=== PATIENT | male | born 1950 | race Caucasian/White ===

== ENCOUNTER 2018-01-01 18:43 | Emergency (ER) | payer OTHER, SELFPAY ==
[2018-01-01 18:44] VITALS: BP 157/93; PULSE 68; RESP 16; TEMP 36.9; O2SAT 98; BMI 28.0
--- NOTE | 2018-01-01 20:49 | ED.VISSUMM ---
- ER Visit Summary Date of Service: 01/01/18 Chief Complaint: Laceration History of Present Illness: The patient is a [address] Montoya off. Reports that he was at work today and he stood up and hit his head on a piece of metal. Suffered a laceration. Reports he is a throbbing pain to his had this 2 out of 10 severity. No loss of consciousness. Is not on any blood thinners. His tetanus is up-to-date. Physical Examination: Vitals: Stable. Afebrile. Head: 1.5 cm laceration to the midline of the frontal portion of his scalp. No active bleeding. Neck: No vertebral tenderness. Full ROM without difficulty. Cleared by NEXUS criteria. Back: No vertebral tenderness. General: A&O x 3. NAD. Cardiovascular exam: Regular rate and rhythm, no murmur, rub or gallop. Respiratory exam: Chest nontender. No crepitus. Clear to auscultation bilaterally. No wheezes or stridor. Abdominal exam: Soft, nontender, nondistended, normal bowel sounds. No pain in RUQ or LUQ specifically. No peritoneal signs. Extremity: Atraumatic. No pain with range of motion. Emergency Department Course and Treatment: I have discussed treatment options with the patient. He is up to alleviate this heal by secondary intention. I think that is a reasonable course of action. Treatment Plan: Patient will be discharged instructions to keep the area clean, dry, and covered. Follow-up corporate care in 1 week for another exam. Disposition: To home in improved and stable condition. Impression: 1. Scalp laceration, 1.5 cm, not repaired. This note was generated with [employer] dictation software. It may contain incorrect words, spelling, and punctuation that were not noted in review of the chart prior to signing ED Disposition - Plan for ED Patient: Disposition: Home or Assisted Living Chief Complaint: Laceration Instructions: ED Laceration Small Superf No Sutr Referrals: Corporate,Care [GROUP OF PHYSICIANS] - 1 Week
[2018-01-01 21:02] VITALS: PULSE 87; RESP 16; O2SAT 98
== END 2018-01-01 21:02 | disposition home or self-care (01) ==
PROVIDERS: Emergency Provider Emergency Medicine; Family Provider Family Medicine; PCP Family Medicine
DX: S01.01XA Laceration without foreign body of scalp, initial encounter (principal); I10 Essential (primary) hypertension; Z87.442 Personal history of urinary calculi; Z79.899 Other long term (current) drug therapy; W22.8XXA Striking against or struck by other objects, initial encounter; Y93.89 Activity, other specified; Y92.89 Other specified places as the place of occurrence of the external cause; Y99.0 Civilian activity done for income or pay
CPT/HCPCS: 99282

== ENCOUNTER 2022-01-15 22:09 | Inpatient (IN) | payer MEDICARE, SELFPAY ==
[2022-01-15 22:12] VITALS: BP 205/105; PULSE 74; RESP 16; TEMP 36.8; O2SAT 97; BMI 26.9
--- NOTE | 2022-01-15 22:42 | CT_ITS ---
ACR Level 3 findings have been noted. An addendum which confirms receipt of the report will follow. STUDY: CT ABDOMEN AND PELVIS WITH CONTRAST REASON FOR EXAM: Male, 72 years old. abd pain RADIATION DOSAGE (If Supplied By Facility): CTDIvol = ( 20.33 ) mGy, DLP = ( 1846.26 ) mGycm TECHNIQUE: Transaxial images were obtained from the dome of the diaphragm to the symphysis pubis without oral contrast. IV 100mL Isovue-370 was administered. Sagittal and coronal images were reconstructed. Individualized dose optimization techniques were used for this CT. COMPARISON: CT abdomen and pelvis 05/04/2014. FINDINGS: LOWER CHEST: Unremarkable. LIVER: A few small cysts. Scattered calcifications. GALLBLADDER/BILE DUCTS: Unremarkable. PANCREAS: Unremarkable. SPLEEN: Small calcifications previous granulomatous process. ADRENAL GLANDS: Unremarkable. KIDNEYS / URETERS: Exophytic mass lower pole right kidney measures approximately 5.9 x 4.8 cm axial by 5.8 cm craniocaudal, is increased size compared to prior studies. Multiple parapelvic cysts bilaterally. There is an irregular shaped 12 mm calculus in the left renal pelvis at the ureteropelvic junction. Mild fullness of the left renal collecting system without significant hydronephrosis. BOWEL / MESENTERY: Moderately dilated small bowel. Distal small bowel is decreased caliber. Transition zone is not clearly identified but is likely in the right mid abdomen. Mild stranding in the adjacent mesentery. No bowel obstruction. APPENDIX: Identified and normal. No evidence of acute appendicitis. PERITONEUM: No free air. Small amount of free fluid in the mid to lower abdomen. VESSELS: Abdominal aorta is normal caliber. RETROPERITONEUM: Unremarkable. REPRODUCTIVE ORGANS: Enlarged prostate.. BLADDER: Unremarkable. ABDOMINAL WALL: Small left inguinal hernia contains fat and fluid, no bowel. BONES: No acute abnormality. OTHER: None. CT/Abdomen/Pelvis W IV Cont ONLY IMPRESSION: 1. Dilated small bowel pattern consistent with at least partial distal small bowel obstruction. Ileus or enteritis less likely. Mild stranding in the adjacent mesentery. 2. Small amount of ascites. 3. Large 12 mm calculus at the left UPJ, no significant hydronephrosis. 4. Right renal mass 6 cm increased size from prior studies highly suspicious for renal cell carcinoma. Electronically Signed: Lotus Ying MD at 0:29 EDT ,
[2022-01-15] MEDS: 0.9% Normal Saline 1,000 ML 999 ML IV (22:53)
[2022-01-15] MEDS: Dicyclomine 20 MG/2 ML Vial IM (23:00)
[2022-01-15] MEDS: Famotidine 200 MG/20 ML MDV 20 MG in 0.9% Normal Saline (Pres. free 8 ML 300 MG IV (23:00)
[2022-01-15 23:04] LABS: Absolute Lymphocyte Count 0.66 X10^3/uL (0.83-4.51); Absolute Neutrophil Count 2.8 X10^3/uL (2.0-7.7); Basophil# 0.01 X10^3/uL; Basophil% 0.2 % (0-1); Hematocrit 45.8 % (40-54); Hemoglobin 15.6 g/dL (13.0-16.5); Lymphocyte # 0.66 X10^3/ul (0.83-4.51); Lymphocyte % 16.3 % (19-41); Mean Corp Hgb Conc 34.1 g/dL (32-36); Mean Corpuscular Hgb 32.8 pg (27.0-32.0); Mean Corpuscular Volume 96.2 fL (80-94); Mean Platelet Vol. 10.2 fl (6.2-12.0); Monocyte# 0.55 X10^3/uL; Monocyte% 13.6 % (0-10); NRBC Flagged by Analyzer 0 % (0-5); Neutrophil # 2.82 X10^3/uL (2.7-7.7); Neutrophil % 69.7 % (47-70); POSITIVE COUNT YES; Platelet Count 169 K/mm3 (150-450); RBC Distribution Width CV 11.9 % (11.6-14.6); RBC Distribution Width SD 42.4 fl (35.1-43.9); Red Blood Count 4.76 M/mm3 (4.6-6.2); White Blood Count 4.1 K/mm3 (4.4-11.0)
[2022-01-15 23:21] LABS: Differential Indicated SCAN CRITERIA MET
[2022-01-15 23:22] LABS: Differential Comment SCANNED
[2022-01-15 23:26] LABS: AST(SGOT) 30 U/L (15-37); Alanine Aminotransfer ALT/SGPT 30 U/L (16-61); Albumin, Serum 3.4 g/dL (3.2-5.0); Alkaline Phosphatase 74 U/L (45-117); Anion Gap 3 (5-15); BUN 19 mg/dL (7-18); BUN/Creat Ratio 17.6 RATIO (10-20); Bilirubin, Direct 0.18 mg/dL (0.00-0.30); Chloride 103 mmol/L (98-107); Creatinine, Serum 1.08 mg/dL (0.70-1.30); EST Glomerular Filtration Rate 72 mL/min (>60); Est Glom Filt Rate - Afr Amer 87 mL/min (>60); Estimated Creatinine Clearance 79.06 ml/min; Globulin 3.5 g/dL (2.2-4.2); Glucose 119 mg/dL (74-106); Lipase 42 U/L (73-393); Potassium 3.8 mmol/L (3.5-5.1); Protein, Total 6.9 g/dL (6.4-8.2); Sodium Level 139 mmol/L (136-145)
[2022-01-16] VITALS (7 sets, daily range): BP systolic 140–187; BP diastolic 86–109; PULSE 67–75; RESP 16–18; TEMP 36.6–37.2; O2SAT 95–97; BMI 27.1
--- NOTE | 2022-01-16 00:57 | PCM.HP.STD ---
HPI - General General Date of Admission: 01/16/22 Date of Service: 01/16/22 Chief Complaint: Abdominal bloating, N/V/D. HPI Narrative The patient is a 72 y/o M w/ PMHx: HTN, Hx Nephrolithiasis who presents to the [facility] ED on 01/16/22 with history of onset starting Thursday specifically bloating with distention with loose stools as well as nausea and emesis however since then the emesis is abated and the diarrhea has resolved but he continues to have distention and discomfort rated 4-5 out of 10 in severity and described as an aching with a discomfort primarily along the bilateral abdominal sides with a stretch was worse with distention with decreased oral intake tolerance prompting ED evaluation. Following NG tube placement in the ED patient notes improvement of his discomfort and states he feels nearly to baseline. Work-up in the ED included T98.2, heart rate 74, BP 205/105, respiratory rate 16, 97% room air, CBC with WC 4.1, hemoglobin 15.6, platelet 169 with lymphopenia, CMP with convex at 33, BUN/creat 19/1.01, glucose 119, unremarkable Paddock profile, lipase 42, CT A/P w/ dilated small bowel pattern consistent with at least partial distal small bowel obstruction, ileus or enteritis less likely, mild stranding in the adjacent mesentery, small amount of ascites, large 12 mm calculus at the left UPJ, no significant hydronephrosis, right renal mass 6 cm increased size from prior studies highly suspicious for renal cell carcinoma. ED physician discussed case with general surgeon who agreed with NG tube placement. In the ED patient administered IV famotidine as well as normal saline bolus. In the ED patient administered famotidine IV, Bentyl IM as well as normal saline bolus. [facility] Medical History (Updated 01/16/22 @ 02:24 by Dong Vargas) History of nephrolithiasis HTN (hypertension) Hypothyroidism Home Medications aspirin 81 mg chewable tablet 81 mg PO QODAY [facility] 01/16/22 [History Last Taken 01/15/22] levothyroxine 75 mcg tablet 75 mcg PO DAILY thyroid 01/16/22 [History Last Taken 01/15/22] lisinopril 20 mg tablet 20 mg PO DAILY htn 01/16/22 [History Last Taken 01/15/22] omega-3 fatty acids 500 mg PO DAILY supplement 01/16/22 [History Last Taken 01/15/22] pediatric multivitamin no.76 (Flintstones Complete chewable tablet) 2 tab PO DAILY supplement 01/16/22 [History Last Taken 01/15/22] Allergy/AdvReac Type Severity Reaction Status Date / Time No Known Allergies Allergy Verified 01/15/22 22:13 Surgical History (Updated 01/16/22 @ 02:24 by Dong Vargas) H/O hand surgery H/O hernia repair History of lithotripsy Social History (Updated 01/16/22 @ 00:[address] Cherri Sood MD) household members: spouse Smoking Status: Never smoker alcohol intake: never substance use type: does not use ROS ROS Narrative Admission Review of Systems: CONSTITUTIONAL: No weight loss, fever, chills, + weakness or fatigue. HEENT: Eyes: No visual loss, blurred vision, double vision or yellow sclerae. Ears, Nose, Throat: No hearing loss, sneezing, congestion, runny nose or sore throat. SKIN: No rash or itching, lesions, wounds. CARDIOVASCULAR: No chest pain, chest pressure or chest discomfort, palpitations, edema, orthopnea, syncopal events. RESPIRATORY: No shortness of breath, cough or sputum, wheezing, hemoptysis. GASTROINTESTINAL: + anorexia, nausea w/ vomiting in the ED, abdominal pain/bloating, No diarrhea, melena, BRBPR. GENITOURINARY: No dysuria, frequency, urgency or retention. NEUROLOGICAL: No headache, dizziness, syncope, paralysis, ataxia, numbness or tingling in the extremities, focal weakness, change in bowel or bladder control, seizure. MUSCULOSKELETAL: No muscle, back pain, joint pain or stiffness. HEMATOLOGIC: No anemia, bleeding or bruising. LYMPHATICS: No enlarged nodes. No history of splenectomy. PSYCHIATRIC: No history of depression or anxiety. ENDOCRINOLOGIC: No reports of sweating, cold or heat intolerance. No polyuria or polydipsia. ALLERGIES: No history of asthma, hives, eczema or rhinitis. Vital Signs Vital Signs Vital Signs: 01/15/22 22:12 Temperature 98.2 F Temperature Source Temporal Pulse Rate 74 Respiratory Rate 16 Blood Pressure 205/105 H Blood Pressure Mean 138 Pulse Ox 97 Oxygen Delivery Method Room Air Weight Weight: 227 lb Body Mass Index (BMI) 26.9 Physical Exam Narrative Physical Examination: General: Awake, alert, oriented x 3 and cooperative, seated upright in the ED bed, notes pain improved s/p recent NGT placement. Skin: Normal color, normal turgor, no icterus, no cyanosis. HEENT: AT/NC, EOMI, PERRLA, dry MM, NGT in place, no carotid bruits or JVD noted. Lungs: CTA bilaterally, moderate effort, mild decrease BL bases, no rales, ronchi or wheezing. Heart: Regular rate and rhythm; no gallop, rub audible. Abdomen: Soft, NTTP, notes pain improved s/p recent NGT placement, still mildly distended, absent bowel sounds, no obvious HSM. Extremities: No cyanosis, clubbing, or edema. Neurological: Patient awake, alert, oriented as noted, cognitive function intact; pupils equally reactive to light and accommodation, cranial nerves II-XII grossly normal, moving all 4 extremities, no focal deficits, strength mildly globally decreased secondary to acute presentation Psychiatric: Affect appears fatigued, notes pain improved, no obvious evidence of depression or anxiety. Results Lab / Micro Data Result Diagrams: 01/15/22 05:22 01/15/22 05:22 Labs: Laboratory Results - last 24 hr 01/15/22 05:22: Sodium 139, Potassium 3.8, Chloride 103, Carbon Dioxide 33.0 H, Anion Gap 3 L, BUN 19 H, Creatinine 1.08, Estim Creat Clear Calc 79.06, Est GFR (MDRD) Af Amer 87, Est GFR (MDRD) Non-Af 72, BUN/Creatinine Ratio 17.6, Glucose 119 H, Calcium 9.0, Total Bilirubin 0.60, Direct Bilirubin 0.18, AST 30, ALT 30, Alkaline Phosphatase 74, Total Protein 6.9, Albumin 3.4, Globulin 3.5, Lipase 42 L 01/15/22 05:22: WBC 4.1 L, RBC 4.76, Hgb 15.6, Hct 45.8, MCV 96.2 H, MCH 32.8 H, MCHC 34.1, RDW Std Deviation 42.4, RDW Coeff of Stone 11.9, Plt Count 169, MPV 10.2, Immature Gran % (Auto) 0.200, Neut % (Auto) 69.7, Lymph % (Auto) 16.3 L, Mcclain % (Auto) 13.6 H, Eos % (Auto) 0.0, Baso % (Auto) 0.2, Absolute Neuts (auto) 2.8, Absolute Lymphs (auto) 0.66 L, Nucleated RBC % 0, Differential Comment SCANNED Radiology Impression Abdomen/Pelvis CT 01/15/22 22:42 IMPRESSION: 1. Dilated small bowel pattern consistent with at least partial distal small bowel obstruction. Ileus or enteritis less likely. Mild stranding in the adjacent mesentery. 2. Small amount of ascites. 3. Large 12 mm calculus at the left UPJ, no significant hydronephrosis. 4. Right renal mass 6 cm increased size from prior studies highly suspicious for renal cell carcinoma. Electronically Signed: Lotus Ying MD at 0:29 EDT , ADDENDUM: 01/16/22 0039 IMPRESSION: 1. Dilated small bowel pattern consistent with at least partial distal small bowel obstruction. Ileus or enteritis less likely. Mild stranding in the adjacent mesentery. 2. Small amount of ascites. 3. Large 12 mm calculus at the left UPJ, no significant hydronephrosis. 4. Right renal mass 6 cm increased size from prior studies highly suspicious for renal cell carcinoma. N.B. : Dr Stefano Talavera MD, confirmed on 01/16/2022 00:32:39 (ET) that the healthcare facility has received the radiology report. Electronically Signed: Lotus Ying MD at 0:29 EDT , Assessment & Plan Assessment/Plan (1) Small bowel obstruction: PLAN: Plan The patient is a 72 y/o M w/ PMHx: HTN, Hx Nephrolithiasis who presents to the [facility] ED on 01/16/22 with history of onset starting Thursday specifically bloating with distention with loose stools as well as nausea and emesis however since then the emesis is abated and the diarrhea has resolved but he continues to have distention and discomfort rated 4-5 out of 10 in severity and described as an aching with a discomfort primarily along the bilateral abdominal sides with a stretch was worse with distention with decreased oral intake tolerance prompting ED evaluation. #1. Abdominal pain, nausea, emesis w/ suspected partial SBO, possible Enteritis: Will admit to [facility], maintain on IVFs, continue NGT to suction, strict I&Os, IV pain/anti-emetics PRN, serial KUB as needed to montior bowel function, Famotidine IV, maintain NPO on bowel rest. General surgery consulted and pending. #2. Incidental right renal mass: Patient with a right renal mass 6 mm increased in size from prior studies although patient denies any history of knowledge of this, suspicious for renal cell carcinoma, urology consulted, pending. #3. Incidental left UPJ calculus without hydronephrosis: Patient with a large 12 mm calculus at the left UPJ with no significant hydronephrosis, urology is noted consulted. #4. Hypertension: Given presentation maintain NPO status, PRN hydralazine. #5. DVT prophylaxis: SCDs, Lovenox. Charges/Coding Visit Charges Inpatient E&M: 45999 Init Hosp L3
--- NOTE | 2022-01-16 01:00 | RAD_ITS ---
STUDY: X-RAY - ABDOMEN/PELVIS REASON FOR EXAM: Male, 72 years old. NG Insertion TECHNIQUE: Portable, upright, AP abdomen radiograph COMPARISON: 11/21/2014 RAD/Abdomen Single View (Portable) IMPRESSION: NG tube terminates over the gastric fundus with sidehole below the diaphragm. Multiple prominent gas-filled small bowel loops. Electronically Signed: Finesse Nelson MD at 2:14 EDT ,
--- NOTE | 2022-01-16 01:01 | EX.ED.DYSGE1 ---
HPI History of Present Illness Chief Complaint: Abd Pain Narrative Narrative: Patient is a 72-year-old male with past medical history of hypertension as well as past surgical history of a left inguinal hernia repair about 20 years ago. He states beginning Thursday he developed abdominal bloating with bouts of nausea vomiting and loose stools. He states that the stool has now resolved and his vomiting has stopped as well but he continues to feel nauseous and distended. He saw his family doctor and was placed on Zofran but has had minimal symptom improvement and secondary to this presents for evaluation. [facility] Medical History (Updated 01/16/22 @ 02:[address] Stefano Talavera DO) History of nephrolithiasis HTN (hypertension) Home Medications [facility] [History Last Taken 01/15/22] levothyroxine 75 mcg tablet 75 mcg PO DAILY thyroid 01/16/22 [History Last Taken 01/15/22] lisinopril 20 mg tablet 20 mg PO DAILY htn 01/16/22 [History Last Taken 01/15/22] omega-3 fatty acids 500 mg PO DAILY supplement 01/16/22 [History Last Taken 01/15/22] pediatric multivitamin no.76 (Flintstones Complete chewable tablet) 2 tab PO DAILY supplement 01/16/22 [History Last Taken 01/15/22] Allergy/AdvReac Type Severity Reaction Status Date / Time No Known Allergies Allergy Verified 01/15/22 22:13 Surgical History (Updated 01/16/22 @ 00:[address] Cherri Sood MD) H/O hand surgery History of appendectomy History of lithotripsy Social History (Updated 01/16/22 @ 00:[address] Cherri Sood MD) household members: spouse Smoking Status: Never smoker alcohol intake: never substance use type: does not use ROS ROS ED Constitutional Constitutional ED: Denies chills or fever(s) ENT ENT ED: Denies sore throat Cardiovascular Cardiovascular: Denies chest pain Respiratory/Chest Respiratory/Chest: Denies cough or dyspnea Gastrointestinal Gastrointestinal: Reports abdominal pain, diarrhea, nausea and vomiting Genitourinary Genitourinary ED: Denies dysuria Musculoskeletal Musculoskeletal: Denies back pain or myalgias Integumentary Denies rash Neurologic Neurologic: Denies headache(s) Hematologic/Lymphatic Hematologic/Lymphatic: Denies easy bleeding or easy bruising EXAM Physical Exam Const Vital Signs: 01/15/22 22:12 Temperature 98.2 F Temperature Source Temporal Pulse Rate 74 Respiratory Rate 16 Blood Pressure 205/105 H Blood Pressure Mean 138 Pulse Ox 97 Oxygen Delivery Method Room Air Positive well nourished and well developed General Appearance ED: well developed HEENT Reports moist mucous membranes Eyes PERRL and EOMs intact bilaterally Neck supple Resp normal respiratory effort and clear to auscultation bilaterally Cardio regular rate and regular rhythm Rate: other Other Details: Radial pulses are plus 2 out of 4 bilaterally are equal and symmetric GI GI Narrative: Abdomen is distended with hypoactive bowel sounds and mild diffuse pain with palpation. There is increased tympany along the right mid abdomen. No voluntary guarding or rigidity. No pulsatile mass or fluid wave Auscultation: hypoactive bowel sounds Back/Spine no CVA tenderness Extremity normal to inspection Neuro oriented x3 and CN's II-XII intact bilaterally Sensorium / Orientation: alert Psych mental status grossly normal Skin no rashes or lesions noted MDM MDM MDM Narrative Medical decision making narrative: Patient presented to ER hypertensive but does have a history of this and therefore it was not overtly concerning especially with his symptoms and pain. His clinical picture is consistent with enteritis but the distention is concerning for obstruction. Secondary to his basic blood work and a CT were ordered. Labs revealed no clinically significant findings but CT scan did show changes consistent with partial small bowel obstruction and renal cell carcinoma. The case was discussed with general surgery who recommends that patient be admitted to medicine based on his history of hypertension age and now renal cell carcinoma. However they do recommend patient have NG tube placed because of his distention. Therefore an NG tube was ordered and will be placed in the ER and patient be admitted to the hospital for continued symptom control and further evaluation. Lab Data Attestation: I reviewed the patient's lab results. Labs: Laboratory Results - last 24 hr 01/15/22 01/15/22 05:22 05:22 WBC 4.1 L RBC 4.76 Hgb 15.6 Hct 45.8 MCV 96.2 H MCH 32.8 H MCHC 34.1 RDW Std Deviation 42.4 RDW Coeff of Stone 11.9 Plt Count 169 MPV 10.2 Immature Gran % (Auto) 0.200 Neut % (Auto) 69.7 Lymph % (Auto) 16.3 L [place] % (Auto) 13.6 H Eos % (Auto) 0.0 Baso % (Auto) 0.2 Absolute Neuts (auto) 2.8 Absolute Lymphs (auto) 0.66 L Nucleated RBC % 0 Differential Comment SCANNED Sodium 139 Potassium 3.8 Chloride 103 Carbon Dioxide 33.0 H Anion Gap 3 L BUN 19 H Creatinine 1.08 Estim Creat Clear Calc 79.06 Est GFR (MDRD) Af Amer 87 Est GFR (MDRD) Non-Af 72 BUN/Creatinine Ratio 17.6 Glucose 119 H Calcium 9.0 Total Bilirubin 0.60 Direct Bilirubin 0.18 AST 30 ALT 30 Alkaline Phosphatase 74 Total Protein 6.9 Albumin 3.4 Globulin 3.5 Lipase 42 L Radiography Diagnostic Testing: Clinical Impression(s) from Imaging Studies Abdomen/Pelvis CT 01/15/22 22:42 IMPRESSION: 1. Dilated small bowel pattern consistent with at least partial distal small bowel obstruction. Ileus or enteritis less likely. Mild stranding in the adjacent mesentery. 2. Small amount of ascites. 3. Large 12 mm calculus at the left UPJ, no significant hydronephrosis. 4. Right renal mass 6 cm increased size from prior studies highly suspicious for renal cell carcinoma. Electronically Signed: Lotus Ying MD at 0:29 EDT , ADDENDUM: 01/16/22 0039 IMPRESSION: 1. Dilated small bowel pattern consistent with at least partial distal small bowel obstruction. Ileus or enteritis less likely. Mild stranding in the adjacent mesentery. 2. Small amount of ascites. 3. Large 12 mm calculus at the left UPJ, no significant hydronephrosis. 4. Right renal mass 6 cm increased size from prior studies highly suspicious for renal cell carcinoma. N.B. : Dr Stefano Talavera MD, confirmed on 01/16/2022 00:32:39 (ET) that the healthcare facility has received the radiology report. Electronically Signed: Lotus Ying MD at 0:29 EDT , KUB X-Ray 01/16/22 01:00 IMPRESSION: NG tube terminates over the gastric fundus with sidehole below the diaphragm. Multiple prominent gas-filled small bowel loops. Electronically Signed: Finesse Nelson MD at 2:14 EDT , KUB as interpreted by the emergency medicine physician reveals that the NG tube is in the proper place and terminating in the gastric fundus Discharge Plan Dx/Rx/DC Orders Clinical Impression: Small bowel obstruction, Renal cell carcinoma, Hypertension Disposition Disposition: Acute Care Hospital [facility] Discharge Date/Time: 01/16/22 02:01
[2022-01-16] MEDS: Ketorolac 15 MG/ML Vial IV (01:10)
[2022-01-16] MEDS: Oxymetazoline 0.05% 1 SPRAY SPRAY.BTL 2 SPRAY NASAL (01:12)
[2022-01-16] MEDS: 0.9% Normal Saline 1,000 ML 125 ML IV ×3 (02:46→18:09)
[2022-01-16] MEDS: 0.9% Saline Lock 10 ML Syringe IV ×3 (02:47→21:29)
[2022-01-16] MEDS: hydrALAZINE 20 MG/ML Vial 10 MG IV (05:38)
--- NOTE | 2022-01-16 05:55 | RAD_ITS ---
STUDY: X-RAY - ABDOMEN/PELVIS REASON FOR EXAM: Male, 72 years old. pSBO TECHNIQUE: Single AP view of the abdomen / pelvis. COMPARISON: Comparison is made with prior study done earlier in the day. FINDINGS: Nasogastric tube is seen with the tip in the body of the stomach. There are dilated loops of the small intestine with a non-distended colon consistent with a partial small bowel obstruction. Gas is seen in the colon. The visualized liver, spleen and kidneys are grossly normal in size and morphology. Normal soft tissue structures. Normal visualized osseous structures. RAD/Abdomen Single View (Portable) IMPRESSION: Small bowel dilatation suggestive of a partial small bowel obstruction with the gas seen in the colon. Electronically Signed: Juventino Parisi MD at 9:57 EDT ,
[2022-01-16 06:36] LABS: Absolute Neutrophil Count 2.1 X10^3/uL (2.0-7.7); Basophil# 0.01 X10^3/uL; Basophil% 0.3 % (0-1); Hematocrit 42.3 % (40-54); Hemoglobin 14.4 g/dL (13.0-16.5); Lymphocyte % 15.8 % (19-41); Mean Corpuscular Hgb 32.7 pg (27.0-32.0); Mean Corpuscular Volume 96.1 fL (80-94); Monocyte# 0.53 X10^3/uL; Monocyte% 16.8 % (0-10); NRBC Flagged by Analyzer 0 % (0-5); Neutrophil # 2.12 X10^3/uL (2.7-7.7); Neutrophil % 67.1 % (47-70); POSITIVE DIFFERENTIAL YES; Platelet Count 174 K/mm3 (150-450); RBC Distribution Width SD 42.3 fl (35.1-43.9); White Blood Count 3.2 K/mm3 (4.4-11.0)
[2022-01-16 06:38] LABS: Differential Indicated SCAN CRITERIA MET
[2022-01-16 06:51] LABS: Atypical Lymphocyte 1+ %; Macrocytosis 1+
--- NOTE | 2022-01-16 07:19 | CON.PCM.SX_ITS ---
Assessment & Plan Assessment/Plan (1) Small bowel obstruction: PLAN: The patient has an enlarging right kidney mass as well as a possible partial small bowel obstruction. Patient reports that he is having bowel movements and passing flatus and his abdominal pain is improved. He is slightly distended but nontender. His NG does not have much in the canister but he reports that there was a lot that came out when he had it placed. I would recommend continuing NG suction with IV fluids and monitoring. Depending on NG output it may be able to be removed tomorrow if he starts resolving his bowel obstruction. Satnam Chandra MD Pager: [facility] [address] [place] [address], [address] [place] [id number] Office: HPI Consult Data Date of Consult: 01/16/22 HPI Narrative HPI Narrative: MARIE SANABRIA, is a 72 M who presents with abdominal pain and nausea and vomiting. Patient says this started 4 days ago. He says that on Thursday he began to have abdominal pain with vomiting. This continued through Thursday. He says on Thursday he stopped vomiting but he still had persistent abdominal pain. He does say yesterday he had normal loose bowel movement and he was passing gas overnight. This morning he reports his abdominal pain is improved. [facility] Medical History (Updated 01/16/22 @ 02:24 by Dong Vargas) History of nephrolithiasis HTN (hypertension) Hypothyroidism Home Medications aspirin 81 mg chewable tablet 81 mg PO [facility] 01/16/22 [History Last Taken 01/15/22] levothyroxine 75 mcg tablet 75 mcg PO DAILY thyroid 01/16/22 [History Last Taken 01/15/22] lisinopril 20 mg tablet 20 mg PO DAILY htn 01/16/22 [History Last Taken 01/15/22] omega-3 fatty acids 500 mg PO DAILY supplement 01/16/22 [History Last Taken 01/15/22] pediatric multivitamin no.76 (Flintstones Complete chewable tablet) 2 tab PO DAILY supplement 01/16/22 [History Last Taken 01/15/22] Allergy/AdvReac Type Severity Reaction Status Date / Time No Known Allergies Allergy Verified 01/15/22 22:13 Surgical History (Updated 01/16/22 @ 02:24 by Dong Vargas) H/O hand surgery H/O hernia repair History of lithotripsy Social History (Updated 01/16/22 @ 00:[address] Cherri Sood MD) household members: spouse Smoking Status: Never smoker alcohol intake: never substance use type: does not use ROS Constitutional Constitutional: Reports anorexia; Denies chills, fatigue or fever(s) Eyes Eyes: Denies blurry vision ENT HEENT: Denies abnormal hearing Cardiovascular Cardiovascular: Denies chest pain Respiratory/Chest Respiratory/Chest: Denies cough or dyspnea Gastrointestinal Gastrointestinal: Reports abdominal pain, diarrhea, nausea and vomiting; Denies coffee ground emesis or constipation Genitourinary Genitourinary: Denies change in urinary stream Musculoskeletal Musculoskeletal: Denies abnormal gait Integumentary Integumentary: Denies jaundice Neurologic Neurologic: Denies abnormal gait Psychiatric Psychiatric: Denies depression Endocrine Endocrinology: Denies flushing Hematologic/Lymphatic Hematologic/Lymphatic: Denies easy bleeding Physical Exam Const alert and oriented x3 HEENT normocephalic Eyes PERRL Resp normal respiratory effort Cardio Rate: regular rate Rhythm: regular rhythm GI soft to palpation and non-tender Inspection: abdominal distention Extremity normal to inspection Skin no rashes or lesions noted Neuro CN's II-XII intact bilaterally Psych mental status grossly normal Lab / Micro Data Result Diagrams: 01/16/22 06:15 01/15/22 05:22 Labs: Laboratory Results - last 24 hr 01/15/22 05:22: Sodium 139, Potassium 3.8, Chloride 103, Carbon Dioxide 33.0 H, Anion Gap 3 L, BUN 19 H, Creatinine 1.08, Estim Creat Clear Calc 79.06, Est GFR (MDRD) Af Amer 87, Est GFR (MDRD) Non-Af 72, BUN/Creatinine Ratio 17.6, Glucose 119 H, Calcium 9.0, Total Bilirubin 0.60, Direct Bilirubin 0.18, AST 30, ALT 30, Alkaline Phosphatase 74, Total Protein 6.9, Albumin 3.4, Globulin 3.5, Lipase 42 L 01/15/22 05:22: WBC 4.1 L, RBC 4.76, Hgb 15.6, Hct 45.8, MCV 96.2 H, MCH 32.8 H, MCHC 34.1, RDW Std Deviation 42.4, RDW Coeff of Stone 11.9, Plt Count 169, MPV 10.2, Immature Gran % (Auto) 0.200, Neut % (Auto) 69.7, Lymph % (Auto) 16.3 L, [place] % (Auto) 13.6 H, Eos % (Auto) 0.0, Baso % (Auto) 0.2, Absolute Neuts (auto) 2.8, Absolute Lymphs (auto) 0.66 L, Nucleated RBC % 0, Differential Comment SCANNED 01/16/22 06:15: WBC 3.2 L, RBC 4.40 L, Hgb 14.4, Hct 42.3, MCV 96.1 H, MCH 32.7 H, MCHC 34.0, RDW Std Deviation 42.3, RDW Coeff of Stone 12.0, Plt Count 174, MPV 10.0, Immature Gran % (Auto) 0.000, Neut % (Auto) 67.1, Lymph % (Auto) 15.8 L, [place] % (Auto) 16.8 H, Eos % (Auto) 0.0, Baso % (Auto) 0.3, Absolute Neuts (auto) 2.1, Absolute Lymphs (auto) 0.50 L, Nucleated RBC % 0, Diff Path Review May foll, Atypical Lymphocytes 1+, Macrocytosis 1+ Radiology Impression Abdomen/Pelvis CT 01/15/22 22:42 IMPRESSION: 1. Dilated small bowel pattern consistent with at least partial distal small bowel obstruction. Ileus or enteritis less likely. Mild stranding in the adjacent mesentery. 2. Small amount of ascites. 3. Large 12 mm calculus at the left UPJ, no significant hydronephrosis. 4. Right renal mass 6 cm increased size from prior studies highly suspicious for renal cell carcinoma. Electronically Signed: Lotus Ying MD at 0:29 EDT , ADDENDUM: 01/16/22 0039 IMPRESSION: 1. Dilated small bowel pattern consistent with at least partial distal small bowel obstruction. Ileus or enteritis less likely. Mild stranding in the adjacent mesentery. 2. Small amount of ascites. 3. Large 12 mm calculus at the left UPJ, no significant hydronephrosis. 4. Right renal mass 6 cm increased size from prior studies highly suspicious for renal cell carcinoma. N.B. : Dr Stefano Talavera MD, confirmed on 01/16/2022 00:32:39 (ET) that the healthcare facility has received the radiology report. Electronically Signed: Lotus Ying MD at 0:29 EDT , KUB X-Ray 01/16/22 01:00 IMPRESSION: NG tube terminates over the gastric fundus with sidehole below the diaphragm. Multiple prominent gas-filled small bowel loops. Electronically Signed: Finesse Nelson MD at 2:14 EDT ,
[2022-01-16 07:27] LABS: ALB/GLOB Ratio 0.9 RATIO (0.9-2.4); AST(SGOT) 28 U/L (15-37); Alanine Aminotransfer ALT/SGPT 28 U/L (16-61); Albumin, Serum 2.9 g/dL (3.2-5.0); Alkaline Phosphatase 65 U/L (45-117); Anion Gap 5 (5-15); BUN 20 mg/dL (7-18); BUN/Creat Ratio 20.3 RATIO (10-20); Calcium,Total 8.2 mg/dL (8.5-10.1); Chloride 105 mmol/L (98-107); Creatinine, Serum 0.98 mg/dL (0.70-1.30); EST Glomerular Filtration Rate 80 mL/min (>60); Est Glom Filt Rate - Afr Amer 97 mL/min (>60); Estimated Creatinine Clearance 87.13 ml/min; Globulin 3.2 g/dL (2.2-4.2); Glucose 106 mg/dL (74-106); Potassium 3.9 mmol/L (3.5-5.1); Protein, Total 6.1 g/dL (6.4-8.2); Sodium Level 138 mmol/L (136-145)
--- NOTE | 2022-01-16 07:52 | PCM.CONS.U ---
Assessment & Plan Assessment/Plan (1) Renal cell carcinoma: PLAN: Right side has a mass concerning for renal cell carcinoma we will have to deal with this separately also will review past images to see if this is been there before could be slow-growing. (2) Left renal stone: PLAN: He has a stone in the left renal pelvis causing obstruction at the UPJ could be contributing factor his nausea and vomiting and ileus we will set him up for stent placement and shockwave lithotripsy tomorrow n.p.o. at midnight (3) Kidney stone on left side: HPI Consult Data Date of Consult: 01/16/22 HPI Narrative Reason for Consultation: left kidney stones HPI Narrative: MARIE SANABRIA, is a 72 M who presents nausea vomiting distended abdomen he has an NG tube seen by general surgery he does have a stone in the left kidney surprisingly does have much pain in that side but it is not obstructing stone so organ to set him up for left ESWL and stent placement n.p.o. at midnight on make sure he is off all blood thinners. [facility] Medical History History of nephrolithiasis HTN (hypertension) Hypothyroidism Home Medications aspirin 81 mg chewable tablet 81 [facility] 01/16/22 [History Last Taken 01/15/22] levothyroxine 75 mcg tablet 75 mcg PO DAILY thyroid 01/16/22 [History Last Taken 01/15/22] lisinopril 20 mg tablet 20 mg PO DAILY htn 01/16/22 [History Last Taken 01/15/22] omega-3 fatty acids 500 mg PO DAILY supplement 01/16/22 [History Last Taken 01/15/22] pediatric multivitamin no.76 (Flintstones Complete chewable tablet) 2 tab PO DAILY supplement 01/16/22 [History Last Taken 01/15/22] Allergy/AdvReac Type Severity Reaction Status Date / Time No Known Allergies Allergy Verified 01/15/22 22:13 Surgical History H/O hand surgery H/O hernia repair History of lithotripsy Social History household members: spouse Smoking Status: Never smoker alcohol intake: never substance use type: does not use ROS Constitutional Constitutional: Denies chills, fever(s) or malaise Eyes Eyes: Denies blurry vision or change in vision ENT HEENT: Reports none Cardiovascular Cardiovascular: Denies chest pain or palpitations Respiratory/Chest Respiratory/Chest: Denies cough or shortness of breath with exertion Gastrointestinal Gastrointestinal: Denies abdominal pain, constipation or diarrhea Musculoskeletal Musculoskeletal: Denies back pain, joint stiffness or joint swelling Integumentary Integumentary: Denies dry skin, jaundice, lesions or rash Neurologic Neurologic: Denies confusion, syncope or weakness Psychiatric Psychiatric: Reports none; Denies anxiety or depression Endocrine Endocrinology: Denies excessive sweating, fatigue or flushing Hematologic/Lymphatic Hematologic/Lymphatic: Denies anemia, easy bleeding or easy bruising Physical Exam Const alert and oriented x3 General Appearance: cooperative HEENT normocephalic and head/scalp atraumatic Eyes PERRL and EOMs intact bilaterally Neck supple, no JVD and no carotid bruits Resp normal respiratory effort, normal air movement and clear to auscultation bilaterally Cardio regular rate and no murmurs GI normal to inspection, nondistended, normoactive bowel sounds and soft to palpation Extremity normal capillary refill General Extremity: no tenderness to palpation of joints or extremities; Negative for edema Skin no rashes or lesions noted and no wounds General Skin Exam: no breakdown Neuro CN's II-XII intact bilaterally Psych affect normal Appearance: appropriate Medical Records Data Attestation: I reviewed the patient's medical records Lab / Micro Data Attestation: I reviewed the patient's lab results. Result Diagrams: 01/16/22 06:15 01/16/22 06:15 Labs: Laboratory Results - last 24 hr 01/15/22 05:22: Sodium 139, Potassium 3.8, Chloride 103, Carbon Dioxide 33.0 H, Anion Gap 3 L, BUN 19 H, Creatinine 1.08, Estim Creat Clear Calc 79.06, Est GFR (MDRD) Af Amer 87, Est GFR (MDRD) Non-Af 72, BUN/Creatinine Ratio 17.6, Glucose 119 H, Calcium 9.0, Total Bilirubin 0.60, Direct Bilirubin 0.18, AST 30, ALT 30, Alkaline Phosphatase 74, Total Protein 6.9, Albumin 3.4, Globulin 3.5, Lipase 42 L 01/15/22 05:22: WBC 4.1 L, RBC 4.76, Hgb 15.6, Hct 45.8, MCV 96.2 H, MCH 32.8 H, MCHC 34.1, RDW Std Deviation 42.4, RDW Coeff of Stone 11.9, Plt Count 169, MPV 10.2, Immature Gran % (Auto) 0.200, Neut % (Auto) 69.7, Lymph % (Auto) 16.3 L, [place] % (Auto) 13.6 H, Eos % (Auto) 0.0, Baso % (Auto) 0.2, Absolute Neuts (auto) 2.8, Absolute Lymphs (auto) 0.66 L, Nucleated RBC % 0, Differential Comment SCANNED 01/16/22 06:15: WBC 3.2 L, RBC 4.40 L, Hgb 14.4, Hct 42.3, MCV 96.1 H, MCH 32.7 H, MCHC 34.0, RDW Std Deviation 42.3, RDW Coeff of Stone 12.0, Plt Count 174, MPV 10.0, Immature Gran % (Auto) 0.000, Neut % (Auto) 67.1, Lymph % (Auto) 15.8 L, [place] % (Auto) 16.8 H, Eos % (Auto) 0.0, Baso % (Auto) 0.3, Absolute Neuts (auto) 2.1, Absolute Lymphs (auto) 0.50 L, Nucleated RBC % 0, Diff Path Review May , Atypical Lymphocytes 1+, Macrocytosis 1+ 01/16/22 06:15: Sodium 138, Potassium 3.9, Chloride 105, Carbon Dioxide 28.0, Anion Gap 5, BUN 20 H, Creatinine 0.98, Estim Creat Clear Calc 87.13, Est GFR (MDRD) Af Amer 97, Est GFR (MDRD) Non-Af 80, BUN/Creatinine Ratio 20.3 H, Glucose 106, Calcium 8.2 L, Total Bilirubin 0.60, AST 28, ALT 28, Alkaline Phosphatase 65, Total Protein 6.1 L, Albumin 2.9 L, Globulin 3.2, Albumin/Globulin Ratio 0.9 ABG Data Attestation: I personally reviewed and interpreted this ABG as follows: Radiology Impression Abdomen/Pelvis CT 01/15/22 22:42 IMPRESSION: 1. Dilated small bowel pattern consistent with at least partial distal small bowel obstruction. Ileus or enteritis less likely. Mild stranding in the adjacent mesentery. 2. Small amount of ascites. 3. Large 12 mm calculus at the left UPJ, no significant hydronephrosis. 4. Right renal mass 6 cm increased size from prior studies highly suspicious for renal cell carcinoma. Electronically Signed: Lotus Ying MD at 0:29 EDT , ADDENDUM: 01/16/22 0039 IMPRESSION: 1. Dilated small bowel pattern consistent with at least partial distal small bowel obstruction. Ileus or enteritis less likely. Mild stranding in the adjacent mesentery. 2. Small amount of ascites. 3. Large 12 mm calculus at the left UPJ, no significant hydronephrosis. 4. Right renal mass 6 cm increased size from prior studies highly suspicious for renal cell carcinoma. N.B. : Dr Stefano Talavera MD, confirmed on 01/16/2022 00:32:39 (ET) that the healthcare facility has received the radiology report. Electronically Signed: Lotus Ynig MD at 0:29 EDT , KUB X-Ray 01/16/22 01:00 IMPRESSION: NG tube terminates over the gastric fundus with sidehole below the diaphragm. Multiple prominent gas-filled small bowel loops. Electronically Signed: Finesse Nelson MD at 2:14 EDT ,
[2022-01-16] MEDS: Famotidine 200 MG/20 ML MDV 20 MG in 0.9% Normal Saline (Pres. free 8 ML 300 MG IV ×2 (09:08→21:29)
[2022-01-16] MEDS: Phenol/Sodium Phenolate 180ML 3 SPRAY MUCOUS MEM (10:10)
--- NOTE | 2022-01-16 11:38 | CASEMGMT ---
MORGAN MERCADO Assessment: Face to Face with pt for initial transition planning/care coordination assessment. RN JESS introduced self and role at [facility], pt voices understanding and consents to assessment. Pt is A/O x4 and answers all questions appropriately at this time. Pt lying in bed with NG in in no distress. Care providers, pharmacy, and demographics verified/updated. Admitting Dx: PSBO PCP: Jerardo- Pt just changed from as he retired. Specialists:Pt denies. [facility]erred [facility] Pres[facility] Benefit: yes LW/HPOA: Pt states he has a LW/DPOA and his DPOA is his , Gayathri. He thought that this was on file, made him aware it is not on file at [facility] and he may bring in at any time to be scanned into his chart. LNOK: Gayathri Levin, Living Arrangements: Pt lives with in a 4 story house with 4 steps to enter with a rail on both sides. Pt reports he is I in ADL' s and denies concerns at home. Transportation: Pt drives self and denies concerns with transportation. DME/HHC/SNF: Pt has grab bars in the bathroom. Pt also has a w/c in the attic but does not use. He does not use AD. Pt denies hx of HHC or SNF stays. Pt states no concerns with going home at time of dc. Pt states no further concerns/needs. CM to follow. Advised pt to ask CM if any further question/concerns/needs arise, voices understanding. Pt Goal: Home Plan: Home
--- NOTE | 2022-01-16 12:13 | EKG12_ITS ---
Test Reason : Blood Pressure : / mmHG Vent. Rate : 069 BPM Atrial Rate : 069 BPM P-R Int : 206 ms QRS Dur : 116 ms QT Int : 412 ms P-R-T Axes : 060 -39 090 degrees QTc Int : 441 ms Normal sinus rhythm Left axis deviation Left ventricular hypertrophy with QRS widening Abnormal ECG When compared with ECG of 05-MAY-2014 07:20, Premature atrial complexes are no longer Present QRS duration has increased Criteria for Inferior infarct are no longer Present T wave inversion no longer evident in Inferior leads T wave inversion now evident in Lateral leads Confirmed by SOMMER OVIEDO, JOSLYN ([id number]), photographic editor BRANDI MONROE ([id number]) on 01/20/2022 11:34:36 AM Referred By: MIRIAN Confirmed By:ANGIE NOVOA MD
[2022-01-16 13:26] LABS: Pathologist Review Reviewed
--- NOTE | 2022-01-16 15:42 | NURSING ---
NG is out and pt is walking in the halls at this time.
--- NOTE | 2022-01-16 18:17 | PCM.HOSP.N ---
Hospitalist Note Patient was seen and examined briefly, NG tube remains in place at this time, patient states that he will be going to surgery tomorrow for removal of a kidney stone. I have reviewed general surgery's notes as well as urology's notes, continue present medical treatment as outlined.
[2022-01-17] VITALS (10 sets, daily range): BP systolic 150–177; BP diastolic 91–101; PULSE 62–72; RESP 16–18; TEMP 36.4–37.1; O2SAT 95–99; BMI 27.2
[2022-01-17] MEDS: 0.9% Normal Saline 1,000 ML 125 ML IV ×3 (02:05→17:48)
[2022-01-17 06:36] LABS: Thyroid Stim Hormone (TSH) 3.76 uIU/mL (0.358-3.74)
[2022-01-17] MEDS: Famotidine 200 MG/20 ML MDV 20 MG in 0.9% Normal Saline (Pres. free 8 ML 300 MG IV (09:46)
--- NOTE | 2022-01-17 12:17 | PCM.PN.SRG ---
Subjective Subjective Pt has scheduled for OR with Dr. Miranda for the left kidney stone later tonight. Patient states his abdominal pain is improved and he has had flatus as well as bowel movement. Denies any nausea or vomiting. Objective Data Objective Data Vital Signs: Vital Signs Temp Pulse Resp BP Pulse Ox O2 Del Method 98.1 F 64 18 157/97 H 98 Room Air 01/17/22 08:47 01/17/22 08:47 01/17/22 08:47 01/17/22 08:47 01/17/22 08:47 01/17/22 08:47 Oxygen Delivery Method Room Air Weight: 229 lb 11.547 oz Body Mass Index (BMI) 27.2 Intake & Output: Intake and Output for Last 24 Hours 01/15/22 01/16/22 01/17/22 23:59 23:59 23:59 Intake Total 3192.92 / 3192.92 1966.25 / 1966.25 Output Total 300 / 450 750 / 750 Balance 2892.92 / 2742.92 1216.25 / 1216.25 Lab / Micro Data Result Diagrams: 01/16/22 06:15 01/16/22 06:15 Labs: Laboratory Results - last 24 hr 01/16/22 06:15: Diff Path Review Reviewed 01/17/22 05:20: TSH 3.76 H Physical Exam Const oriented x3 Resp normal respiratory effort Cardio regular rate GI soft to palpation and non-tender Inspection: Negative for abdominal distention Assessment & Plan Assessment/Plan (1) Ileus: PLAN: Plan Ileus appears to have resolved patient denies any abdominal pain and is passing gas and having bowel movements. After OR patient can go on a regular diet and if he is able to tolerate okay to DC home per general surgery standpoint. Dr. Roche will be covering this weekend. Hazel Alan M.D. Pager: [phone] [facility] [address] [place] [address], [facility], [address] [place] [id number] Office: [phone] Charges/Coding Visit Charges Inpatient E&M: 10779 Subs Hosp L2
[2022-01-17] MEDS: Cefazolin 2 GM in 0.9% Normal Saline 100 ML IV (17:10)
--- NOTE | 2022-01-17 17:53 | PCM.OPRPT ---
Report of Operation Date of Procedure: 01/17/22 Pre-Operative Diagnosis: Left UPJ stone with obstruction Post-Operative Diagnosis: Same Surgery/Procedure Performed:: Cystoscopy left stent placement and left extracorporeal shockwave lithotripsy Description of Surgical Findings:: Patient presents to the hospital for treatment of a kidney stone with shockwave lithotripsy. In the preoperative area and x-ray was done to confirm the location of the stone. The x-ray was reviewed and the stone location was reviewed. In the preoperative setting I spoke with the patient regarding the treatment of the stone how the treatment would be conducted and the expectations after surgery. The patient understands there is a risk of bleeding and infection. Also discussed the very rare risk of hematoma or damage to the kidney. We also discussed the risk that the shockwave machine will fail to break the stone adequately and that the patient may need other surgical procedures. We also discussed the possibility that the patient may need a stent after the procedure. After reviewing the procedure with the patient, the patient is signed the consent form all the patient's questions were addressed and was taken back to the operating room for treatment of a kidney stone. The urethra and genitals were prepped and draped in usual sterile fashion. Using a 21 Arabic rigid cystourethroscope the entire length of the urethra was normal then went into the bladder. Identified the trigone the left and right ureteral orifice. I then cannulated the Left orifice and advanced a wire up into the kidney. I then backloaded a 5 Arabic open ended catheter over the wire and injected contrast to delineate the anatomy. After the retrograde was performed I then used fluoroscopic images and guidance to advanced a wire up into the kidney and over the 0.038 glidewire I advanced a 6 Arabic by 26 cm double pigtail stent. I then pulled the 0.038 Glidewire off and the stent coiled in the kidney bladder good position. The bladder was then drained. We confirmed the position of the stent by fluoroscopy. Patient was taken back to the operating room, patient was identified by the nursing staff, we identified the side of the treatment and the patient side of treatment had been marked by my initials. The patient underwent general anesthetic and was placed supine on the lithotripter table. We then used fluoroscopy to identify the stone on the Left side by the stent at the left UPJ. We then positioned the patient under the lithotripter and we used triangulation technique to identify the location of the stone and then we made sure that the stone was engaged in the F2 focal point of F2 Donier lithoprior machine. Once the patient was positioned appropriately and the stone was identified and placed in the F2 focal point of the lithotripter machine we then proceeded with shockwave lithotripsy. In the beginning the shockwave was delivered at a rate of 90 shocks per minute, we monitor the EKG for any ectopy. The power was slowly increased to 5 kV and subsequently at the 7 kV. We then proceeded with the treatment we move the therapy had around during the treatment to make sure the stone stayed in the F2 focal point during the entire treatment and after 3000 shockwaves were delivered to the stone under fluoroscopic guidance the treatment was completed. The patient was given instructions to call the office to make an a follow-up appointment with an xray to evaluate the success of the treatment, pateint understands that its possible the stones may need another procedure.At this point the patient's anesthetic was reversed patient was extubated and taken back to the PACU in stable condition. Surgeon: Hadley Miranda Type of Anesthesia: General Drains: Stent left side
--- NOTE | 2022-01-17 17:56 | DCINST_ITS ---
Discharge Instructions Diet Discharge Diet: No restrictions Follow Up Care Please Follow Up With: Hadley Miranda MD When: 2 weeks for stent removal Test Results: Test results from this visit will be discussed in further detail at your follow- up appointment, if applicable. Discharge Plan Admission Admit Date/Time: 01/16/22 01:01 Attending Provider: Zach Balderrama Primary Care Provider: Bk Kurtz Consulting Providers: Satnam Chandra ; Cherri Sood ; Hadley Miranda Discharge Orders/Prescriptions Prescriptions: No Action lisinopril 20 mg tablet 20 mg PO DAILY levothyroxine 75 mcg tablet 75 mcg PO DAILY aspirin [Baby Aspirin] 81 mg Tablet,Chewable 81 mg PO QODAY Fish Oil Capsule 500 mg PO DAILY Flintstones Complete Tablet,Chewable 2 tab PO DAILY Referrals / Follow Up: Bk Kurtz DO [Primary Care Provider] -
--- NOTE | 2022-01-17 17:59 | PN.HOSP_ITS ---
Subjective Subjective Patient was seen and examined today, his NG was removed, he is due to have cystoscopy and left stent placement with shockwave lithotripsy done late this afternoon. Patient has no complaints of any flank pain at this time. Objective Data Objective Data Vital Signs: Vital Signs Temp Pulse Resp BP Pulse Ox O2 Del Method 98.8 F 72 18 177/98 H 98 Room Air 01/17/22 14:00 01/17/22 14:00 01/17/22 14:00 01/17/22 14:00 01/17/22 14:00 01/17/22 14:00 Oxygen Delivery Method Room Air Weight: 104.2 kg Body Mass Index (BMI) 27.2 Intake & Output: Intake and Output for Last 24 Hours 01/15/22 01/16/22 01/17/22 23:59 23:59 23:59 Intake Total 3192.92 / 3192.92 2076.25 / 2076.25 Output Total 300 / 450 750 / 750 Balance 2892.92 / 2742.92 1326.25 / 1326.25 Lab / Micro Data Result Diagrams: 01/16/22 06:15 01/16/22 06:15 Labs: Laboratory Results - last 24 hr 01/17/22 05:20: TSH 3.76 H Physical Exam Const alert, oriented x3, no apparent distress and healthy appearing General Appearance: cooperative, well kempt and well developed Orientation / Consciousness: awake, oriented to person, oriented to place and oriented to time HEENT normocephalic, head/scalp atraumatic and moist oral mucous membranes Eyes PERRL, EOMs intact bilaterally and conjunctivae normal Neck supple, no JVD, thyroid normal and no carotid bruits General: trachea midline Resp normal respiratory effort, no retractions, no use of accessory muscles and clear to auscultation bilaterally Auscultation: Negative for rales, rhonchi or wheezes Cardio regular rate, regular rhythm, S1 normal heart sound, S2 normal heart sound, no m urmurs, no rub and no gallops GI normal to inspection, nondistended, normoactive bowel sounds, soft to palpation, non-tender and non-distended Extremity no clubbing, cyanosis or edema Skin no rashes or lesions noted General Skin Exam: no breakdown Neuro oriented x3, CN's II-XII intact bilaterally, moves all extremities, no focal motor deficits and no sensory deficits noted Sensorium / Orientation: awake and alert Speech: speech normal Psych affect normal Assessment & Plan Assessment/Plan (1) Small bowel obstruction: PLAN: Plan 1. Left renal stone with obstruction at the ureteropelvic junction-status post stent placement and lithotripsy-patient will continue on his present medications, he may be stable for discharge tomorrow #2 ileus-resolved at this time, general surgery is participating in his care #3 possible renal cell carcinoma right kidney-patient will be following up with urology concerning this as an outpatient #4 essential hypertension-patient will remain on his present blood pressure m edications #5 hypothyroidism-patient is on Synthroid Charges/Coding Visit Charges Inpatient E&M: 38554 Subs Hosp L2
[2022-01-17] MEDS: Acetaminophen 325 MG Tablet 650 MG PO (21:15)
[2022-01-17] MEDS: Famotidine 200 MG/20 ML MDV 20 MG in 0.9% Normal Saline (Pres. free 8 ML 330 MG IV (21:15)
[2022-01-18] MEDS: 0.9% Normal Saline 1,000 ML 125 ML IV (03:02)
[2022-01-18 04:21] VITALS: BP 155/90; PULSE 61; RESP 18; TEMP 36.7; O2SAT 95
[2022-01-18] MEDS: Acetaminophen 325 MG Tablet 650 MG PO (04:28)
[2022-01-18 07:43] VITALS: O2SAT 95
--- NOTE | 2022-01-18 08:11 | DCINST_ITS ---
Discharge Instructions Diet Discharge Diet: No restrictions Activity Discharge Activity: Return to Normal Activity Weight Bearing Status: Full weight bearing Follow Up Care Please Follow Up With: Hadley Miranda MD Test Results: Test results from this visit will be discussed in further detail at your follow- up appointment, if applicable. Discharge Plan Admission Admit Date/Time: 01/16/22 01:01 Primary Reason for Your Visit: left kidney stone, ileus Attending Provider: Zach Balderrama Primary Care Provider: Bk Kurtz Consulting Providers: Satnam Chandra ; Cherri Sood ; Hadley Miranda Discharge Orders/Prescriptions Prescriptions: New hydrocodone-acetaminophen 5-300 mg tablet 1 tab PO Q6H PRN (Reason: pain) 7 Days Qty: 15 0RF Continued lisinopril 20 mg tablet 20 mg PO DAILY levothyroxine 75 mcg tablet 75 mcg PO DAILY aspirin 81 mg Tablet,Chewable 81 mg PO QODAY omega-3 fatty acids Capsule 500 mg PO DAILY Flintstones Complete Tablet,Chewable 2 tab PO DAILY Referrals / Follow Up: Hadley Miranda MD [Med Staff - Active Staff] - See Referral Note (Call office to schedule an appointment) Bk Kurtz DO [Primary Care Provider] - See Referral Note (Follow-up with your primary care doctor as scheduled) Disposition Disposition (needs filled in before D/C Order can be placed): Home, Self Care
--- NOTE | 2022-01-18 08:17 | DS.PCM_ITS ---
Providers Date of Admission: 01/16/22 Date of Discharge: 01/18/22 Primary Care Physician: Dr. Bk Kurtz, Consultations 01/16/22 02:05 Consult: General Surgery Routine Consulting Provider: Satnam Chandra Reason for Consult: p SBO EMERGENT Consult: No Notified: Yes Date Notified: 01/16/22 Time Notified: 01:02 Method of Notification: ED Physician Initiated 01/16/22 07:00 Consult: Urology Routine Consulting Provider: Hadley Miranda Reason for Consult: Renal mass EMERGENT Consult: No Notified: Yes Date Notified: 01/16/22 Time Notified: 01:02 Method of Notification: Verbal Reason For Visit: PSBO Diagnosis Discharge Diagnosis (1) Small bowel obstruction: Status: Resolved Code(s): K56.609 - Unspecified intestinal obstruction, unspecified as to partial versus c omplete obstruction Plan 1. Left renal stone with obstruction at the ureteropelvic junction-status post stent placement and lithotripsy-patient will continue on his present medications, he may be stable for discharge tomorrow #2 ileus-resolved at this time, general surgery is participating in his care #3 possible renal cell carcinoma right kidney-patient will be following up with urology concerning this as an outpatient #4 essential hypertension-patient will remain on his present blood pressure medications #5 hypothyroidism-patient is on Synthroid Medications at Discharge Home Medications aspirin 81 mg chewable tablet 81 mg PO QODAY Sensitive Object [facility] 01/16/22 levothyroxine 75 mcg tablet 75 mcg PO DAILY thyroid 01/16/22 lisinopril 20 mg tablet 20 mg PO DAILY htn 01/16/22 omega-3 fatty acids 500 mg PO DAILY supplement 01/16/22 pediatric multivitamin no.76 (Flintstones Complete chewable tablet) 2 tab PO DAILY supplement 01/16/22 hydrocodone 5 mg-acetaminophen 300 mg tablet 1 tab PO Q6H PRN pain 7 days #15 tabs 01/18/22 Hospital Course Operations - (Cystoscopy with left stent placement and left extracorporeal shockwave lithot ripsy) Procedures None Summary of Care Provided Minutes Spent on Discharge: 32 Hospital Course: This 72-year-old white male was seen in the emergency room with a chief complaint of abdominal bloating with bouts of nausea, vomiting, and loose stools x2 days. Work-up in the emergency room included a CT of the abdomen and pelvis, there were changes consistent with a partial small bowel obstruction, a large 12 mm calculus at the left UPJ, no significant hydronephrosis, and a right renal mass of 6 cm that had been present on a previous study., General surgery was contacted, recommended that the patient have an NG tube inserted because of his abdominal distention, he was admitted to the [facility] and seen in consultation by general surgery and urology. Patient was felt to have an ileus, his NG tube was removed and he underwent a cystoscopy with left stent placement and left extracorporal shockwave lithotripsy on 01/17/2022. Patient tolerated the procedure well and there was no untoward events. On 01/18/2022, patient was seen and examined: On examination he appeared in good health and spirits. Vital signs as documented. Skin warm and dry and without overt rashes. Neck without JVD, neck was supple, trachea midline, thyroid was normal. Lungs clear bilaterally, normal air movement was noted. Heart exam notable for regular rhythm, normal sounds and absence of murmurs, rubs or gallops. Abdomen unremarkable and without evidence of organomegaly, masses, or abdominal aortic enlargement. Bowel sounds are present, abdomen is not distended. Extremities nonedematous, no cyanosis was noted, no clubbing was noted. Neuro: Cranial nerves II through XII are grossly intact, no focal motor deficits were noted, sensation to light touch and pinprick intact, motor exam 5/5 throughout. Psych: Patient is alert and oriented x3, he does not appear anxious or depressed, he does not appear agitated. On 01/18/2022, patient was seen and examined and felt to be in stable condition for discharge home Weight / BMI Weight Weight: 106.4 kg Body Mass Index (BMI) 27.2 ABG / Lab / Microbiology Data Result Diagrams: 01/16/22 06:15 01/16/22 06:15 D/C Instructions Discharge Diet: No restrictions Weight Bearing Status: Full weight bearing Please Follow Up With: Hadely Miranda MD When: 2 weeks for stent removal Meaningful Use Info Meaningful Use Diagnoses (Choose all that apply): None applicable Discharge Plan Admission Admit Date/Time: 01/16/22 01:01 Primary Reason for Your Visit: left kidney stone, ileus Attending Provider: Zach Balderrama Primary Care Provider: Bk Kurtz Consulting Providers: Satnam Chandra ; Cherri Sood ; Hadley Miranda Discharge Orders/Prescriptions Prescriptions: New hydrocodone-acetaminophen 5-300 mg tablet 1 tab PO Q6H PRN (Reason: pain) 7 Days Qty: 15 0RF Continued lisinopril 20 mg tablet 20 mg PO DAILY levothyroxine 75 mcg tablet 75 mcg PO DAILY aspirin 81 mg Tablet,Chewable 81 mg PO QODAY omega-3 fatty acids Capsule 500 mg PO DAILY Flintstones Complete Tablet,Chewable 2 tab PO DAILY Referrals / Follow Up: Hadley Miranda MD [Med Staff - Active Staff] - See Referral Note (Call office to schedule an appointment) Bk Kurtz DO [Primary Care Provider] - See Referral Note (Follow-up with your primary care doctor as scheduled) Disposition Disposition (needs filled in before D/C Order can be placed): Home, Self Care Charges/Coding Visit Charges Inpatient E&M: 16588 Disch Hosp
[2022-01-18 09:34] VITALS: BP 174/66; PULSE 74; RESP 18; TEMP 36.8; O2SAT 100
[2022-01-18 09:36] VITALS: RESP 18
== END 2022-01-18 10:30 | disposition home or self-care (01) | DRG 988 ==
LOC: ED 01-16 01:07 → MS3 01-16 01:25
PROVIDERS: Urology; Admitting Provider Family Medicine; Emergency Provider Emergency Medicine; Visit Provider Internal Medicine
PROC: 0TF4XZZ Fragmentation in Left Kidney Pelvis, External Approach (ICD-10-PCS; CPT 50590; principal; 2022-01-17 16:20)
DX: K56.7 Ileus, unspecified (principal); N20.2 Calculus of kidney with calculus of ureter; C64.1 Malignant neoplasm of right kidney, except renal pelvis; I10 Essential (primary) hypertension; E03.9 Hypothyroidism, unspecified; Z79.82 Long term (current) use of aspirin; Z79.890 Hormone replacement therapy; Z79.899 Other long term (current) drug therapy
CPT/HCPCS: 36415; 74018; 74177; 80048; 80053; 80076; 83690; 84443; 85025; 93005; 99284; J7030; Q9967; A4216; C1769; C2617; J2405; J3490

== ENCOUNTER 2022-01-29 08:43 | Emergency (ER) | payer MEDICARE, SELFPAY ==
[2022-01-29 08:44] VITALS: BP 158/107; PULSE 78; RESP 14; TEMP 37.7; O2SAT 95; BMI 26.5
--- NOTE | 2022-01-29 09:17 | EDS_ITS ---
HPI History of Present Illness Chief Complaint: Complaint Informant: patient Pain Onset: Yesterday Context: Gradual Onset (pain in left groin) Timing: Intermittent Current Severity: Moderate Maximum Severity: Moderate Worsened by: nothing Relieved by: nothing Narrative Narrative: Patient states 2 weeks ago he was here and had a urologic procedure to break up a kidney stone, he does not know the specifics of it, but was told that everything was broken off, he had a stent put in and was supposed to pass the residual material, he states he did pass some and then had a stent removed. Since yesterday, he has had a sensation that he is unable to empty his bladder f ully and some discomfort in his left groin. No back pain, nausea, vomiting, fevers or chills. No hematuria. He states he feels like his bladder is full but then he only has to urinate a small amount. This is occurred frequently since yesterday. PFSH PFSH Medical History History of nephrolithiasis HTN (hypertension) Hypothyroidism Non-smoker Home Medications levothyroxine 75 mcg tablet 75 mcg PO DAILY thyroid 01/16/22 [History Last Taken 01/15/22] lisinopril 20 mg tablet 20 mg PO DAILY htn 01/16/22 [History Last Taken 01/15/22] omega-3 fatty acids 500 mg PO DAILY supplement 01/16/22 [History Last Taken 01/15/22] pediatric multivitamin no.76 (Flintstones Complete chewable tablet) 2 tab PO DAILY supplement 01/16/22 [History Last Taken 01/15/22] aspirin 81 mg chewable tablet 81 mg PO DAILY heart health #30 tabs 01/29/22 [Rx Last Taken 01/15/22] ciprofloxacin HCl 500 mg tablet 500 mg PO BID #14 TABLETS 01/29/22 [Rx Last Taken Unknown] Allergy/AdvReac Type Severity Reaction Status Date / Time No Known Allergies Allergy Verified 01/29/22 08:48 Surgical History H/O hand surgery H/O hernia repair History of lithotripsy Social History household members: spouse Smoking Status: Never smoker alcohol intake: never substance use type: does not use ROS ROS ED Constitutional Constitutional ED: Denies chills or fever(s) Eyes Eyes: Denies change in vision or diplopia ENT ENT ED: Denies rhinorrhea or sore throat Cardiovascular Cardiovascular: Denies chest pain or palpitations Respiratory/Chest Respiratory/Chest: Denies cough or dyspnea Gastrointestinal Gastrointestinal: Reports abdominal pain; Denies diarrhea, nausea or vomiting Genitourinary Genitourinary ED: Reports urinary frequency and other Details: Feels like urinary retention see HPI ; Denies dysuria or hematuria Musculoskeletal Musculoskeletal: Denies back pain or neck pain Integumentary Denies abscess or rash Neurologic Neurologic: Denies headache(s), paresthesias or weakness Psychiatric Psychiatric: Denies anxiety or suicidal thoughts EXAM Physical Exam Const Vital Signs: 01/29/22 08:44 01/29/22 09:50 Temperature 99.9 F H 99.9 F H Temperature Source Temporal Temporal Pulse Rate 78 78 Respiratory Rate 14 14 Blood Pressure 158/107 H 158/107 H Blood Pressure Mean 124 Pulse Ox 95 95 Oxygen Delivery Method Room Air Room Air Positive well nourished and well developed General Appearance ED: well developed and NAD HEENT Reports moist mucous membranes normocephalic and atraumatic Eyes PERRL and EOMs intact bilaterally Neck full ROM and supple Resp normal respiratory effort and clear to auscultation bilaterally Cardio no murmurs Rhythm: abnormal rhythm irregularly irregular GI non-tender and non-distended Auscultation: normoactive bowel sounds Palpation: soft Back/Spine no CVA tenderness General Back: other FROM Extremity normal to inspection General Extremety ED: Negative for edema, pulses abnormal or tenderness General Extremity: Negative for edema or pulses abnormal Neuro oriented x3, CN's II-XII intact bilaterally and no sensory deficits noted Sensorium / Orientation: awake and alert Motor Exam: strength 5/5 throughout Skin no rashes or lesions noted and no wounds MDM MDM MDM Narrative Medical decision making narrative: Post void residual via bladder scan at the bedside according to RN is around 140 mL, inconsistent with acute urinary retention. His urine is showing signs of infection. Discussed with Dr. Miranda, recommends given the symptoms doing a CT, I did this in addition to sending the urine for culture and giving him Rocephin 1 g. His heart sounded irregular, he does not have a history of A. fib and is not feeling any palpitations or irregularity; I did an EKG and is consistent with A. fib with RVR in the 120s. This is new for him. ET shows no obstructive uropathy. Rather, it shows a couple stone fragments that are dependent in the bladder, and on reevaluation patient's pain is completely gone. I suspect that he just recently passed these fragments, and that they were transiently obstructing at the UVJ and causing his symptoms. Dr. Miranda in agreement with that and outpatient antibiotics. He was given Rocephin IV here. With regards to his atrial fibrillation, his [id number] score is 2. This puts him just at moderate risk for stroke, which according to the study was quantified at 2.2 %/year. Patient takes aspirin every other day. He states even if he was at a high risk for stroke he would adamantly refuse to be on an anticoagulant right now but he does agree to follow-up with a auto clutch specialist to have further discussions. When I did the EKG, he was tachycardic but he is not averaging fast. At this time I will recommend that he at least increase his aspirin to daily since he was taking it every other day, and follow-up with cardiology and urology and he is comfortable with that plan. Lab Data Attestation: I reviewed the patient's lab results. Labs: Laboratory Results - last 24 hr 01/29/22 01/29/22 01/29/22 09:37 10:15 10:15 WBC 17.2 H RBC 3.95 L Hgb 13.4 Hct 37.8 L MCV 95.7 H MCH 33.9 H MCHC 35.4 RDW Std Deviation 42.7 RDW Coeff of Stone 12.1 Plt Count 235 MPV 9.6 Immature Gran % (Auto) 0.600 Neut % (Auto) 89.3 H Lymph % (Auto) 3.2 L Starr % (Auto) 6.7 Eos % (Auto) 0.0 Baso % (Auto) 0.2 Absolute Neuts (auto) 15.3 H Absolute Lymphs (auto) 0.55 L Nucleated RBC % 0 Differential Comment Platelet Estimate ADEQUATE RBC Morphology NORM C+C Sodium 138 Potassium 4.0 Chloride 103 Carbon Dioxide 29.0 Anion Gap 6 BUN 20 H Creatinine 1.02 Estim Creat Clear Calc 83.71 Est GFR (MDRD) Af Amer 93 Est GFR (MDRD) Non-Af 77 BUN/Creatinine Ratio 19.6 Glucose 119 H Calcium 8.7 Urine Color Yellow Urine Clarity Sl. Cloudy Urine pH 6.0 Ur Specific [place] 1.015 Urine Protein 30 H Urine Glucose (UA) Normal Urine Ketones Negative Urine Occult Blood 25 H Urine Nitrite Negative Urine Bilirubin Negative Urine Urobilinogen 1 H Ur Leukocyte Esterase 500 H Urine RBC 0-5 SEEN Urine WBC 25-50 SEEN Ur Squamous Epith Cells 0-5 SEEN Urine Bacteria 1+ Urine Mucus 0 SEEN Radiography Diagnostic Testing: Clinical Impression(s) from Imaging Studies Abdomen/Pelvis CT 01/29/22 10:00 IMPRESSION: Stable appearance of the kidneys with evidence of multiple small calculi in the base of the bladder suggests recent passage of ureteral calculi. Electronically Signed: Juventino Parisi MD at 11:09 EDT Reading Location ID and State: [facility] / [place] , Service support , Rhythm Strip Rhythm Strip: A-fib Rate: 120 Ectopy: None EKG Initial EKG: Attestation: I personally reviewed and interpreted this EKG as follows: Interpretation: No Acute Injury Pattern, Atrial Fibrillation and LAFB Prior EKG tracings: available for review Prior: Changed (A. fib is new but left axis and morphology is unchanged.) Discharge Plan Triage Chief Complaint: Complaint ED Provider: Nilay Reyes Dx/Rx/DC Orders Clinical Impression: New onset a-fib, Urinary tract infection, Urolithiasis Instructions: ED AFIB, ED Bladder Infection, Male (Adult) Prescriptions: New ciprofloxacin HCl [ciprofloxacin HCl] 500 MG tablet 500 mg PO BID Qty: 14 0RF Continued lisinopril 20 mg tablet 20 mg PO DAILY levothyroxine 75 mcg tablet 75 mcg PO DAILY omega-3 fatty acids Capsule 500 mg PO DAILY Flintstones Complete Tablet,Chewable 2 tab PO DAILY Changed aspirin 81 mg Tablet,Chewable 81 mg PO DAILY Qty: 30 0RF Discontinued hydrocodone-acetaminophen 5-300 mg tablet 1 tab PO Q6H PRN (Reason: pain) 7 Days Qty: 15 0RF Primary Care Provider: Bk Kurtz Referrals: Travis Appiah MD [Med Staff - Active Staff] - (call for appt regarding afib) Hadley Miranda MD [Med Staff - Active Staff] - As Needed (for any urologic/urinary issues) Bk Kurtz DO [Primary Care Provider] - Disposition Disposition: Home, Self Care
--- NOTE | 2022-01-29 09:20 | EKG12_ITS ---
Test Reason : DYSRHYTHMIA Blood Pressure : / mmHG Vent. Rate : 122 BPM Atrial Rate : 101 BPM P-R Int : 000 ms QRS Dur : 114 ms QT Int : 280 ms P-R-T Axes : 000 -37 130 degrees QTc Int : 399 ms Atrial fibrillation Left axis deviation ST & T wave abnormality, consider lateral ischemia Abnormal ECG Confirmed by TONI OVIEDO, SERAFIN ([id number]), medical editor BRANDI MONROE ([id number]) on 01/31/2022 2:05:03 PM Referred By: ELOISE Confirmed By:SERAFIN MUÑOZ MD
[2022-01-29 09:44] LABS: Mucous, Urine 0 SEEN /hpf (<or=2+)
[2022-01-29 09:45] LABS: Color, Urine Yellow (Yellow); Glucose, Dipstick Normal (Normal); Ketone-Dipstick Negative (Negative); Leukocyte Esterase-Dipstick 500 /ul (Negative); Nitrite-Dipstick Negative (Negative); Occult Blood-Urine 25 /ul (Negative); Protein-Dipstick 30 mg/dl (Negative); Specific Gravity, Urine 1.015 (1.002-1.030); Urine Bilirubin Dipstick Negative (Negative); Urine Clarity Sl. Cloudy (Clear); Urine Urobilinogen 1 mg/dl (Normal)
[2022-01-29 09:50] VITALS: BP 158/107; PULSE 78; RESP 14; TEMP 37.7; O2SAT 95
[2022-01-29 09:51] LABS: Bacteria 1+ /hpf (None Seen); Red Blood Cells-Urine 0-5 SEEN /hpf (0-5); Squamous Epithelial Cells - UA 0-5 SEEN /hpf (0-5); White Blood Cells 25-50 SEEN /hpf (0-5)
--- NOTE | 2022-01-29 10:00 | CT_ITS ---
STUDY: CT ABDOMEN AND PELVIS WITHOUT CONTRAST REASON FOR EXAM: Male, 72 years old. Left flank pain- LITHOTRIPSY 2 WEEKS AGO RADIATION DOSAGE (If Supplied By Facility): CTDIvol = ( 12.31 ) mGy, DLP = ( 658.41 ) mGycm TECHNIQUE: Transaxial images were obtained from the dome of the diaphragm to the symphysis pubis without oral contrast, and without intravenous contrast. Sagittal and coronal images were reconstructed. Individualized dose optimization techniques were used for this CT. COMPARISON: Comparison is made with prior study dated 01/15/2022. FINDINGS: Minimal degree of the dependent bibasilar atelectasis. The visualized portions of the heart are within normal limits. Stable cysts in the left lobe of the liver. Stable small cyst in the right lobe of the liver. Fatty infiltration of the liver. Calcified hepatic granulomas. Normal gallbladder and extrahepatic biliary system. There are multiple benign calcified granulomata of the spleen. Normal pancreas. Normal bilateral adrenal glands. Stable 5.9 signed by 4.87 x 5.8 cm solid mass in the lateral inferior pole of the right kidney. Stable multiple right parapelvic renal cysts. Persistent 1.1 cm calculus in the lower pole of the left kidney. Stable left parapelvic renal cysts as well as exophytic cyst in the inferior pole of the left kidney. Normal visualized stomach. Normal small intestine. Normal colon. The appendix is visualized and appears normal. There is scattered atherosclerotic calcification of the abdominal aorta, without a demonstrated aneurysm. Normal inferior vena cava. There is borderline retroperitoneal lymphadenopathy with enlarged nodes no greater than 10mm in the short axis diameter. Multiple tiny calculi are seen at the base of the bladder suggestive of recent passage of ureteral stone. Prostatic enlargement with indentation at the bladder base. The prostate measures 6 cm x 7.1 cm. Moderate size left inguinal hernia containing fat and nondilated small bowel loops. Normal osseous structures. CT/Abdomen/Pelvis without Cont IMPRESSION: Stable appearance of the kidneys with evidence of multiple small calculi in the base of the bladder suggests recent passage of ureteral calculi. Electronically Signed: Juventino Parisi MD at 11:09 EDT ,
[2022-01-29] MEDS: Ketorolac 15 MG/ML Vial IV (10:28)
[2022-01-29 10:30] LABS: Absolute Lymphocyte Count 0.55 X10^3/uL (0.83-4.51); Absolute Neutrophil Count 15.3 X10^3/uL (2.0-7.7); Basophil# 0.03 X10^3/uL; Basophil% 0.2 % (0-1); Hematocrit 37.8 % (40-54); Hemoglobin 13.4 g/dL (13.0-16.5); Lymphocyte # 0.55 X10^3/ul (0.83-4.51); Lymphocyte % 3.2 % (19-41); Mean Corp Hgb Conc 35.4 g/dL (32-36); Mean Corpuscular Hgb 33.9 pg (27.0-32.0); Mean Corpuscular Volume 95.7 fL (80-94); Mean Platelet Vol. 9.6 fl (6.2-12.0); Monocyte# 1.16 X10^3/uL; Monocyte% 6.7 % (0-10); NRBC Flagged by Analyzer 0 % (0-5); Neutrophil # 15.34 X10^3/uL (2.7-7.7); Neutrophil % 89.3 % (47-70); POSITIVE DIFFERENTIAL YES; Platelet Count 235 K/mm3 (150-450); RBC Distribution Width CV 12.1 % (11.6-14.6); RBC Distribution Width SD 42.7 fl (35.1-43.9); Red Blood Count 3.95 M/mm3 (4.6-6.2); White Blood Count 17.2 K/mm3 (4.4-11.0)
[2022-01-29 10:33] LABS: Differential Indicated SCAN CRITERIA MET
[2022-01-29 10:39] LABS: Anion Gap 6 (5-15); BUN 20 mg/dL (7-18); BUN/Creat Ratio 19.6 RATIO (10-20); Calcium,Total 8.7 mg/dL (8.5-10.1); Chloride 103 mmol/L (98-107); Creatinine, Serum 1.02 mg/dL (0.70-1.30); EST Glomerular Filtration Rate 77 mL/min (>60); Est Glom Filt Rate - Afr Amer 93 mL/min (>60); Estimated Creatinine Clearance 83.71 ml/min; Glucose 119 mg/dL (74-106); Sodium Level 138 mmol/L (136-145)
[2022-01-29] MEDS: Ceftriaxone 1 GM/50 ML BAG IV (10:59)
[2022-01-29 11:00] VITALS: BP 150/94; PULSE 74; RESP 18; TEMP 37.6
[2022-01-29 11:04] LABS: Platelet Estimate ADEQUATE (ADEQ); Red Cell Morphology NORM C+C NORMAL (NORM C&C)
== END 2022-01-29 11:50 | disposition home or self-care (01) ==
PROVIDERS: Emergency Provider Emergency Medicine; Visit Provider Emergency Medicine
DX: N21.0 Calculus in bladder (principal); I48.91 Unspecified atrial fibrillation; N39.0 Urinary tract infection, site not specified; I10 Essential (primary) hypertension; E03.9 Hypothyroidism, unspecified; R33.9 Retention of urine, unspecified; Z79.899 Other long term (current) drug therapy; Z79.82 Long term (current) use of aspirin
CPT/HCPCS: 74176; 80048; 81001; 85025; 87077; 87086; 87088; 87186; 93005; 96365; 96375; 99283; A4216

== ENCOUNTER → 2022-02-19 | Outpatient (CLI) | payer MEDICARE, SELFPAY ==
--- NOTE | 2022-02-19 07:53 | MRI_ITS ---
STUDY: MRI ABDOMEN WITH AND WITHOUT CONTRAST REASON FOR EXAM: Male, 72 years old. METASTATIC DISEASE EVALUATION TECHNIQUE: Standardized fat and water weighted pulse sequences were obtained in all 3 orthogonal planes post contrast administration. IV CLARISSCAN 20 CC was administered for the contrast portion of the examination. COMPARISON: CT 01/29/2022. FINDINGS: The visualized lung bases are unremarkable. The visualized portions of the heart are within normal limits. Stable hepatic cysts. There is a solitary gallstone. Normal spleen. Normal pancreas. Normal bilateral adrenal glands. Slight interval increase in size of right lower pole renal mass measuring 5.8 x 5.4 x 6.5 cm, previously 5.8 x 5 x 6.[address] most [address] 01/29/2022. Similar appearance of bilateral parapelvic cysts. Normal Normal visualized stomach. Normal small intestine. Normal colon. There is diffuse atherosclerotic calcification of the abdominal aorta, without a demonstrated aneurysm. Normal inferior vena cava. Normal retroperitoneum. Normal abdominal wall. There are diffuse degenerative changes of the visualized lumbar spine. MRI/MRI Abd WITH and W/O Contrast IMPRESSION: Slight increase in size of right lower pole renal mass suspicious for renal cell carcinoma when compared to most recent CT dated 01/29/2022. This may be secondary to differences in modality. No evidence of metastatic disease in the abdomen. Other chronic findings as above. Electronically Signed: Neto Bruno MD at 16:38 EDT ,
== END | disposition home or self-care (01) ==
LOC: MRI 07:51
PROVIDERS: Referring Provider Urology; Visit Provider Urology
DX: D41.02 Neoplasm of uncertain behavior of left kidney (principal)
CPT/HCPCS: 74183; A9575

== ENCOUNTER → 2022-08-27 | Outpatient (CLI) | payer MEDICARE, SELFPAY ==
--- NOTE | 2022-08-27 07:09 | MRI_ITS ---
STUDY: MRI ABDOMEN WITH AND WITHOUT CONTRAST REASON FOR EXAM: Male, 72 years old. Neoplasm of uncertain behavior, right kidney. TECHNIQUE: Standardized fat and water weighted pulse sequences were obtained in all 3 orthogonal planes post contrast administration. IV 19ml clariscan was administered for the contrast portion of the examination. COMPARISON: MRI of the abdomen, February 19, 2022. CT of the abdomen, January 29, 2022. FINDINGS: Small right pleural effusion. Lung bases are otherwise clear. The visualized portions of the heart are within normal limits. Normal liver. Normal gallbladder and extrahepatic biliary system. Normal spleen. Normal pancreas. Normal bilateral adrenal glands. The right kidney appears enlarged with cortical thinning. Again seen is diffuse right parapelvic cysts. Again seen is a mass extending off the lower pole of the right kidney measuring 5.4 x 6.2 x 5.8 cm there is a contained area of fluid or fat attenuation. There is peripheral enhancement on the post contrast imaging. There is enhancement of the central high signal areas as well but to a slightly lesser degree than the peripheral soft tissue. Multiple parapelvic cysts in otherwise normal left kidney there is an exophytic cyst off the posterior aspect of the lower kidney. Normal left kidney. Normal visualized stomach. Normal visualized small intestine. Normal visualized colon. Normal abdominal aorta. Normal inferior vena cava. Normal retroperitoneum. Normal abdominal wall. Normal osseous structures. MRI/MRI Abd WITH and W/O Contrast IMPRESSION: 1. Stable soft tissue mass in the from the lower pole of the right kidney which appears essentially unchanged from the previous study. 2. New onset right pleural effusion. This is suboptimally visualized on the current study. 3. No evidence of metastatic disease or other interval change. Electronically Signed: Jr oD DO at 18:25 EST ,
== END | disposition home or self-care (01) ==
PROVIDERS: Referring Provider Urology; Visit Provider Urology
DX: D41.01 Neoplasm of uncertain behavior of right kidney (principal)
CPT/HCPCS: 74183; A9575

== ENCOUNTER → 2023-09-21 | Outpatient (CLI) | payer MEDICARE, SELFPAY ==
--- NOTE | 2023-09-21 07:43 | CT_ITS ---
INDICATION: UNCERTAIN BEHAVIOR OF RIGHT KIDNEY EXAMINATION: CT ABDOMEN AND PELVIS WITH AND WITHOUT CONTRAST - CT Abdomen And Pelvis WO/W Contrast Injection TECHNIQUE: Helically acquired images were obtained of the abdomen and pelvis both before and after IV contrast. A radiation dose optimization technique was used for this scan. IV Contrast dosage and agent: 100 cc of Isovue-300. Oral contrast: None. RADIATION DOSAGE (If Supplied By Facility): CTDIvol = ( 20.10 ) mGy, DLP = ( 2553.02 ) mGycm COMPARISON: Prior noncontrast CT scan of the abdomen and pelvis of 01/29/2022 and MRI of the abdomen with contrast of 02/19/2022 and 08/27/2022. FINDINGS: LOWER CHEST: Lung bases are clear. No cardiomegaly or pericardial effusion. LIVER: Homogeneous. Stable liver cysts are again seen. Scattered calcifications/granulomata. GALLBLADDER AND BILIARY TREE: No calcified gallstones. No gallbladder distension or wall edema. No intra- or extrahepatic biliary ductal dilation. PANCREAS: No focal cystic or solid mass. SPLEEN: Multiple calcified granulomata. Spleen is normal in size. ADRENAL GLANDS: No nodules. KIDNEYS AND URETERS: Multiple large parapelvic cysts are again seen bilaterally essentially unchanged. Exophytic simple cyst in the posterior left kidney is again seen for which no further follow-up examination. Heterogeneous well-defined exophytic mass in the lateral aspect of the right kidney measuring about 5.9 cm with minimal peripheral enhancement unchanged since the prior examinations. Small calcifications/nonobstructing stones are seen in the left kidney. PERITONEUM: No ascites or free air. No other fluid collection. BOWEL: No evidence of acute appendicitis. No stomach or bowel distension. No focal inflammatory change. LYMPH NODES: No enlarged mesenteric or retroperitoneal lymph nodes. VESSELS: Aorta is non-dilated. URINARY BLADDER: Unremarkable. REPRODUCTIVE ORGANS: Slightly prominent prostate. Correlation with PSA level is recommended. ABDOMINAL WALL: Left inguinal hernia containing fat. Adjacent small bowel loop. BONES: No lytic or blastic abnormality. CT/CT Abd/Pelvis W/WO Contrast IMPRESSION: 1. Exophytic right renal mass essentially unchanged since the prior examinations. 2. Bilateral parapelvic cysts unchanged. 3. Small nonobstructing stone in the left kidney. 4. No focal acute inflammatory process. 5. Left inguinal hernia containing fat. Electronically Signed: Carl Mckeon MD at 10:06 EDT ,
[2023-09-21 08:21] LABS: CREATININE FINGERSTICK < 1.0 mg/dL (0.70-1.30); EGFR FINGERSTICK > 60.0000 mL/min (>60)
== END | disposition home or self-care (01) ==
PROVIDERS: Referring Provider Urology; Visit Provider Urology
DX: D41.01 Neoplasm of uncertain behavior of right kidney (principal)
CPT/HCPCS: 74178; Q9967